=== PATIENT | male | born 1960 | race American Indian/Alaskan Native ===

== ENCOUNTER 2016-10-11 09:35 | Emergency (ER) | payer BC ==
[2016-10-11 10:10] VITALS: BP 127/92
[2016-10-11] MEDS ORDERED: MOTRIN PO ONE (10:59)
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
--- NOTE | 2016-10-11 11:48 | XRay Report ---
CERVICAL SPINE, 3 views: History: Neck pain. Findings: There is straightening of the normal lordosis with moderate disc space narrowing at all levels. The posterior elements are intact. No fracture or malalignment is appreciated. The prevertebral soft tissues are normal thickness. Small left cervical rib at C7 is noted. Impression: 1. No evidence for acute injury to the cervical spine. 2. Degenerative changes.
== END 2016-10-11 12:48 | disposition home or self-care (01) ==
LOC: ED 09:35
DX: S16.1XXA Strain of muscle, fascia and tendon at neck level, initial encounter (principal); I10 Essential (primary) hypertension; E78.00 Pure hypercholesterolemia, unspecified; V89.2XXA Person injured in unspecified motor-vehicle accident, traffic, initial encounter; Y93.89 Activity, other specified; Y99.8 Other external cause status; Y92.89 Other specified places as the place of occurrence of the external cause
CPT/HCPCS: 72040; 99283